=== PATIENT | male | born 1950 | race Caucasian/White ===

== ENCOUNTER 2018-08-24 08:14 | Day surgery (SDC) | payer MEDICARE, OTHER ==
[~2018-08-24 08:14] MED LIST: CEFAZOLIN 2 Gram 2 GM/50 ML BAG IVPB ONE; CELECOXIB 100 MG CAPSULE PO ONE; FAMOTIDINE 20MG TABLET PO ONE; MECLIZINE 25 MG TABLET PO ONE; METOCLOPRAMIDE 10 MG TABLET PO ONE; VANCOMYCIN HCL 1,000 MG in DEXTROSE 5 % IN WATER 250 ML IVPB ONE
[2018-08-24] MEDS ORDERED: PROPOFOL 10 MG/ML VIAL IV ONE (08:15)
[2018-08-24] MEDS ORDERED: DEXAMETHASONE 4 MG/ML 1ML VIAL IVP ONE (08:15)
[2018-08-24] MEDS ORDERED: TRANEXAMIC ACID 1,000 MG/10 ML ML IV ONE ×2 (08:15)
[2018-08-24] MEDS ORDERED: 0.9 % SODIUM CHLORIDE 10 ML VIAL IVP ONE (08:15)
[2018-08-24] MEDS ORDERED: LIDOCAINE 2% MDV (20MG/ML) 20ML VIAL IV ONE (08:15)
[2018-08-24] MEDS ORDERED: EPHEDRINE SULFATE 50 MG/ML ML IV ONE (08:15)
[2018-08-24] MEDS ORDERED: MIDAZOLAM HCL 2MG/2ML VIAL IV ONE (08:15)
[2018-08-24] MEDS ORDERED: 0.9 % SODIUM CHLORIDE 100ML 100 ML IV ONE (08:15)
[2018-08-24] MEDS ORDERED: BUPIVACAINE 0.5% W/EPI MPF 30 ML VIAL IVP ONE (08:15)
[2018-08-24] MEDS ORDERED: ROPIVACAINE HCL (NAROPIN) /PF 5MG/ML 20ML VIAL IV ONE (08:15)
[2018-08-24 09:26] LABS: ABO GROUP O; ANTIBODY SCREEN NEGATIVE (NEGATIVE); RH TYPE POSITIVE
[2018-08-24] MEDS ORDERED: ACETAMINOPHEN 325 MG TAB PO PRN (13:23)
[2018-08-24] MEDS ORDERED: KETOROLAC 30 MG/ML VIAL IVP PRN ×2 (13:23)
[2018-08-24] MEDS ORDERED: BISACODYL 10 MG SUPP RC PRN (13:23)
[2018-08-24] MEDS ORDERED: MAGNESIUM HYDROXIDE 30 ML UDC PO PRN (13:23)
[2018-08-24] MEDS ORDERED: AL HYDROX/MAG HYDROX 30ML UD PO PRN (13:23)
[2018-08-24] MEDS ORDERED: HYDROCODONE/APAP 10/325 TABLET PO PRN (13:23)
[2018-08-24] MEDS ORDERED: TRAMADOL HCL 50 MG TABLET PO PRN (13:23)
[2018-08-24] MEDS ORDERED: ONDANSETRON HCL IV 4 MG/2 ML VIAL IVP PRN (13:23)
[2018-08-24] MEDS ORDERED: DIPHENHYDRAMINE HCL 25 MG CAPSULE PO PRN (13:23)
[2018-08-24] MEDS ORDERED: HYDROMORPHONE HCL 2 MG/ML VIAL IM PRN (13:23)
[2018-08-24] MEDS ORDERED: NALOXONE 0.4 MG/1 ML VIAL IVP PRN (13:23)
[2018-08-24] MEDS ORDERED: ACETAMINOPHEN W/ CODEINE 300MG/60MG TABLET PO PRN ×2 (13:23)
[2018-08-24] MEDS ORDERED: ZOLPIDEM TARTRATE 5 MG TABLET PO PRN (13:23)
[2018-08-24] MEDS: HYDROCODONE/APAP 10/325 TABLET PO PRN ×2 (16:13→20:13)
--- NOTE | 2018-08-24 17:29 | Rehab Evaluation ---
Patient Information - Patient Information Diagnosis: L knee OA Ordered Treatment: PT Evaluate and Treat Status: Initial Evaluation Surgery: Yes (L TKA) Date of Surgery: 08/24/18 Past Medical/Surgical Hx: PAST MEDICAL/SURGICAL HISTORY Past Surgical History left knee reconstruction 3 surgeries all together hemorrhoids sinus PMH - Respiratory Hx Respiratory Disorders Yes Comment: pt wheezes negative PFT PMH - Cardiovascular Hx Cardiovascular Disorders Yes Hx Hypertension Yes: on meds good control Exercise Tolerance Fair PMH - Neuro Hx Neurological Disorders No PMH - GI Hx Gastrointestinal Disorders Yes Hx Gastrointestinal Bleed Yes: in Hx Gastroesophageal Reflux Yes: on meds PMH - Hx Genitourinary Disorders No PMH - Endocrine Hx Endocrine Disorders No PMH - Musculoskeletal Hx Musculoskeletal Disorders Yes Hx Arthritis Yes PMH - Psych Hx Psychiatric Problems No PMH - Hematology/Oncology Hx Hematology/Oncology Yes Disorders Hx Anemia Yes: possibly Hx Blood Transfusion Reaction No Premorbid Status: Detail (The patient was independent with all mobilty prior to surgery.) Social History: Detail (The patient lives with spouse in a two story house but will live primarily on the first floor. The house has 3 steps and no hand railings. The patient's bathroom is equipped with a tub/shower, hand held shower , two shower chairs with one having the transfer bench and standard toilet. The bathroom has no grab bars. The patient has a front wheeled walker and standard cane.) Precautions: [place], Fall, Other (WBAT on the L LE) - Time With Patient Total Time Spent With Patient (Min): 25 Treatment Procedures: Detail (Initial Evaluation) Subjective Information - Subjective Information Per Patient (The patient had no complaints of pain.) Objective Data - Mental Status Patient Orientation: Oriented x3 - Visual Perception Appears within normal limits for therapeutic activities - ROM Not within normal limits (The patient's L knee AROM is limited as to be expected following surgery. All other LE AROM is WNL.) - Strength/Tone Not within normal limits (The patient's L LE strength was not tested secondary to s/p surgery however it is functional ie: patient was able to complete a SLR. R LE strength was WNL.) - Bed Mobility Independent (Independent with supine to sit.) - Transfers Independent (The patient was independent with sit to and from stand with verbal cues for proper technique ( reaching back for chair)) - Balance Balance Sitting: Good Balance Standing: Good - Sensation Intact - Gait Detail (The patient ambulated with front wheeled walker a distance of 45 feet x 1 WBAT L LE with supervision for safety.) Therapy Assessment - Therapy Assessment Detail (The bed mobility, transfers, and supervision for safety with ambulation. Feel the patient will progress well.) Problem List - Problem List Physical Therapy Problem List: Detail ( Decreased L knee AROM and L LE strength) Goals - Goals Physical Therapy Goals: 1) The patient will be independent with HEP of TKA exercises. 2) The patient will ambulate on stairs with supervision for safety using proper technique. Prognosis - Prognosis Good Plan - Plan Physical Therapy Plan: PT 1-2 sessions for gait training on stairs and instruction in HEP.
[2018-08-24] MEDS: CEFAZOLIN 2 Gram 2 GM/50 ML BAG IVPB SCH (18:36)
[2018-08-24] MEDS: DOCUSATE SODIUM 100 MG CAPSULE PO SCH (21:59)
[2018-08-24] MEDS: POTASSIUM CHLORIDE/D5-0.9%NACL 20 MEQ/1,000 ML BAG IV SCH ×2 (22:02→22:03)
[2018-08-25] MEDS: CEFAZOLIN 2 Gram 2 GM/50 ML BAG IVPB SCH ×2 (04:13→11:29)
[2018-08-25] MEDS: HYDROCODONE/APAP 10/325 TABLET PO PRN ×2 (04:59→09:10)
[2018-08-25] MEDS ORDERED: PATIENT OWN MED: OMEPRAZOLE 20 MG PO SCH (07:00)
[2018-08-25 07:09] LABS: HEMATOCRIT 37.1 % (42.0-52.0); HEMOGLOBIN 12.5 gm/dl (14.0-18.0)
[2018-08-25 07:31] LABS: BLOOD UREA NITROGEN 15 mg/dL (8-23); CREATININE 0.7 mg/dL (0.7-1.2); EST GLOMERULAR FILTRATION RATE > 60 mL/min; GLUCOSE,RANDOM 124 mg/dL (74-109)
[2018-08-25] MEDS: DOCUSATE SODIUM 100 MG CAPSULE PO SCH (09:09)
[2018-08-25] MEDS ORDERED: AMLODIPINE 2.5 MG PO SCH (10:00)
[2018-08-25] MEDS ORDERED: LISINOPRIL PO SCH (10:00)
[2018-08-25] MEDS ORDERED: HCTZ PO SCH (10:00)
[2018-08-25] MEDS ORDERED: RIVAROXABAN 10 MG TABLET PO SCH (10:00)
[2018-08-25] MEDS ORDERED: FERROUS SULFATE 325 MG TAB PO SCH (10:00)
--- NOTE | 2018-08-25 10:28 | Physical Therapy Tx Note ---
Physical Therapy Tx Note - Treatment Note Tolerated: Good Total Time Spent With Patient: 30 Physical Therapy Tx Note: Detail (Patient was reclined in bed upon FLIGHT RESERVATIONS MANAGER arrival. Patient states doing good today. Patient transferred supine to sit independently. Patient transferred sit to and from stand independently. Patient ambulated 155 feet with wheeled walker SBA x1. Patient ascended and descended 3 steps with holding railing and walker CGA x1. Patient transferred sit to and from stand independently. Patient performed tub transfer independently. Patient ambulated 100 feet with wheeled walker SBA x1. Patient transferred sit to and from stand independently. Patient performed the following exercises seated in chair x10 reps each: marching, LAQ, heel raises, toe raises, quad sets, hamstring sets, glut squeezes, and heel slides. Patient tolerated treatment well. Patient displays good understanding of exercises and stair climbing. Patient has passed all PT goals at this time, and is discharged from inpatient PT.) Physical Therapy Problem List: Detail ( Decreased L knee AROM and L LE strength) Physical Therapy Goals: Patient has met all inpatient PT goals. Prognosis: Good Physical Therapy Plan: Patient is discharged from inpatient PT at this time.
--- NOTE | 2018-08-25 11:05 | Rehab Evaluation ---
Patient Information - Patient Information Diagnosis: L knee OA Ordered Treatment: OT Evaluate and Treat Status: Initial Evaluation Surgery: Yes (L TKA) Date of Surgery: 08/24/18 Past Medical/Surgical Hx: PAST MEDICAL/SURGICAL HISTORY Past Surgical History left knee reconstruction 3 surgeries all together hemorrhoids sinus PMH - Respiratory Hx Respiratory Disorders Yes Comment: pt wheezes negative PFT PMH - Cardiovascular Hx Cardiovascular Disorders Yes Hx Hypertension Yes: on meds good control Exercise Tolerance Fair PMH - Neuro Hx Neurological Disorders No PMH - GI Hx Gastrointestinal Disorders Yes Hx Gastrointestinal Bleed Yes: in Hx Gastroesophageal Reflux Yes: on meds PMH - Hx Genitourinary Disorders No PMH - Endocrine Hx Endocrine Disorders No PMH - Musculoskeletal Hx Musculoskeletal Disorders Yes Hx Arthritis Yes PMH - Psych Hx Psychiatric Problems No PMH - Hematology/Oncology Hx Hematology/Oncology Yes Disorders Hx Anemia Yes: possibly Hx Blood Transfusion Reaction No Premorbid Status: Detail (The patient was independent with all mobility and yard work prior to surgery. Spouse completed home mgmt, meal prep and laundry.) Social History: Detail (The patient lives with spouse in a two story house but will live primarily on the first floor. The house has 3 steps and no hand railings at the entrance. The patient's bathroom is equipped with a tub/shower, hand held shower , two shower chairs with one having the transfer bench and standard toilet. The bathroom has no grab bars. The patient has a front wheeled walker and standard cane.) Precautions: [place], Fall, Other (WBAT on the L LE) - Time With Patient Total Time Spent With Patient (Min): 40 Treatment Procedures: Detail (OT eval low complexity) Subjective Information - Subjective Information Per Patient Objective Data - Pain Pain Present: Yes (12/29) - Mental Status Patient Orientation: Oriented x3 - Visual Perception Appears within normal limits for therapeutic activities - ROM Within normal limits (Melo UE AROM WNL) - Strength/Tone Within normal limits (Melo UE strength WNL) - Coordination Appears within normal limits for therapeutic activities - Bed Mobility Independent (Ind with supine to sit) - Transfers Independent (Ind with sit to stand from EOB and toilet) - Balance Balance Sitting: Good Balance Standing: Good - Sensation Intact - Gait Detail (Pt ambulating in room with 2 wheeled walker Indly.) - ADL's/IADL's Detail (Pt already had shorts on, reviewed modified LE dressing technique and pt was able to verbalize learning. Pt able to demonstrate doffing slipper socks and donning slip on slippers. Reviewed shower and kitchen safety and modifications, pt verbalized understanding.) Therapy Assessment - Therapy Assessment Detail (Pt is Ind with modified LE dressing techniques.) Problem List - Problem List Physical Therapy Problem List: Detail ( Decreased L knee AROM and L LE strength) Occupational Therapy Problem List: Detail (No current IP OT problems identified. ) Goals - Goals Physical Therapy Goals: Patient has met all inpatient PT goals. Occupational Therapy Goals: No current IP OT goals identified. Prognosis - Prognosis Good Plan - Plan Physical Therapy Plan: Patient is discharged from inpatient PT at this time. Occupational Therapy Plan: No further IP OT recommended. Thank you for this referral.
--- NOTE | 2018-08-26 08:51 | Operative Note ---
DATE OF SURGERY: 08/24/2018 PREOPERATIVE DIAGNOSES: 1. Profound end-stage arthrosis of the left knee. 2. Retained hardware of left proximal tibia. POSTOPERATIVE DIAGNOSES: 1. Profound end-stage arthrosis of the left knee. 2. Retained hardware of left proximal tibia. OPERATION: 1. Cemented left total knee arthroplasty using [employer] Veena II components with a size 7 Oxinium femur, a size 7 stem tibia baseplate, a 9 mm lipped highly crosslinked tibial insert, and a 35 mm all plastic patella. 2. Removal of deep buried hardware, left proximal tibia. Staff Surgeon: Carlos Mancilla MD Anesthesia: Spinal. PREPARATION: Chloraprep. INDIVIDUAL CONSIDERATIONS: None. PROCEDURE: The patient was taken to the operating room, placed supine on the operating room table. He had a successful induction of spinal anesthetic. The left lower extremity was prepped and draped in the usual fashion. The limb was elevated and tourniquet was inflated to 250 mmHg. The patient had a midline approach to the knee. The dissection was carried distally a little farther than normal because I had to take the plate off the proximal tibia. Sharp dissection carried down through skin and subcutaneous tissue. Small veins were coagulated with a Bovie. A medial arthrotomy was performed. The patella was everted and the knee was flexed. The patient's knee was destroyed. Exposed bone medially in the patellofemoral compartment with not even with bone loss even. Fat pad was resected, ACL was sacrificed, provisional anterior meniscectomies were performed. The capsule was released from the medial proximal tibia. Then I extended the dissection posteriorly and I found the plate. Subperiosteal dissection on top of the plate and removed the 4 screws. Initial femoral spray pilot hole was then made freehand. The intramedullary femoral cutting jig was placed. It was cut in 7.0 degrees of valgus and adjusted for rotation and secured with pins for a 10 mm resection. The initial transverse cut was then made. The skin guide was placed in the anterior and posterior spray pilot holes. It was found that a size 7 would be appropriate. The anterior and posterior cuts followed by chamfer cuts were made. Osteophytes removed, and a size 7 trial was placed and found to fit well. The tibia was brought forward, and the remainder of the meniscal remnants removed with a Bovie. The extraarticular tibial cutting jig was placed. It was cut in neutral with a 3-degree AP slope. Care was taken to adjust the rotation and flexion using the extraarticular alignment guide and bony landmarks. It was set for a 9 mm resection keyed off the high lateral side and secured with pins. When cutting the tibia, care was taken to preserve the PCL insertion on the tibia. Large medial osteophytes were removed. It was found that a size 7 would be appropriate. It was adjusted for rotation and secured with pins. With a 9 mm trial and femoral trial, there was excellent motion and stability, ligamentous balance, rotation alignment were thought to be normal. The femoral spray pilot holes were impacted and a tri-flange tibial stamp was impacted. These trial components were removed. The patient had very thick patella and roughly 9 mm of bone was removed freehand. I was able to easily fit a 35 patella, and the 3 spray pilot holes were drilled. The tourniquet was let down briefly to get bleeders posteriorly and then placed back up again. The knee was then thoroughly irrigated out with pulsatile Betadine and saline to remove any visual or palpable debris. Bony surfaces were then dried. A size 7 stem tibia baseplate was cemented into place followed by impaction of the 9 mm lipped tibial insert followed by cementing in the size 7 Oxinium femur followed by cementing in the 35 mm patella. The implant surfaces were compressed, excess cement was removed, and after the cement had set, there was excellent motion and stability, ligamentous balance, rotation alignment, and patellofemoral tracking were normal. No lateral release was required. Tourniquet was let down. Hemostasis was obtained with a Bovie. The skin, periosteum, and subcu were infiltrated with 30 mL of 0.5% Marcaine with epinephrine. The capsule was then closed with a running #2 quill, subcu was closed in layers with running 0 quill, skin was closed with jarrett. The patient did receive 1 g of tranexamic acid IV preoperatively. I mixed 1 g of tranexamic acid with 30 mL of saline and injected into the knee sterilely through an 18-gauge needle, and a sterile bulky compressive ROBY-type dressing was applied. The patient tolerated the procedure well. Needle and sponge counts were correct. Estimated blood loss was minimal, and he was taken back to recovery in good condition. There were no complications. DONNIE
== END 2018-08-25 12:40 | disposition home or self-care (01) ==
LOC: SUR 08:14 → MEDSURG 13:50 → SUR 08-25 12:40
PROVIDERS: ATTEND Orthopaedic Surgery
DX: M17.12 Unilateral primary osteoarthritis, left knee (principal); Z96.9 Presence of functional implant, unspecified; I10 Essential (primary) hypertension
CPT/HCPCS: 76942; 80048; 85014; 85018; 86850; 86900; 86901; 97110; 97530; J3480; J7060